=== PATIENT | male | born 1980 | race Caucasian/White ===

== ENCOUNTER 2018-05-05 16:58 | Emergency (ER) | payer MEDICAID, MEDICARE ==
[~2018-05-05] VITALS: Ht 188 cm; Wt 100.0 kg
[~2018-05-05 16:58] MED LIST: ALLO100T PO; ATE25T PO; CLON-527 PO; CYCL-1 PO; DEXL30CA3 PO; DOCUSATE PO; ESCI10TA45 PO; FOL0.4T CORPAK; GABA-338 PO; NEPHC PO; SEVE800T8 PO
[2018-05-05 17:49] LABS: BASOPHILS % (AUTO) 0.2 % (0-1); EOSINOPHILS # (AUTO) 0.1 X10'3 (0-0.9); EOSINOPHILS % (AUTO) 1.3 % (0-6); HEMATOCRIT 38.4 % (42.0-52.0); HEMOGLOBIN 12.9 g/dl (14.0-17.9); LYMPHOCYTES # (AUTO) 1.1 X10'3 (1.1-4.8); LYMPHOCYTES % (AUTO) 16.2 % (21-51); MEAN CORPUSCULAR HEMOGLOBIN 29.7 PG (27.0-31.0); MEAN CORPUSCULAR HGB CONC 33.6 % (33.0-36.5); MEAN CORPUSCULAR VOLUME 88.5 FL (78-98); MEAN PLATELET VOLUME 7.6 FL (7.4-10.4); MONOCYTES # (AUTO) 0.6 X10'3 (0-0.9); MONOCYTES % (AUTO) 8.3 % (2-12); NEUTROPHILS # (AUTO) 5.1 X10'3 (1.8-7.7); PLATELET COUNT 184 X10'3 (140-440); RED BLOOD COUNT 4.34 X10'6 (4.70-6.10); RED CELL DISTRIBUTION WIDTH 14.6 % (11.5-14.5); WHITE BLOOD COUNT 6.9 X10'3 (4.5-11.0)
[2018-05-05 18:00] LABS: PARTIAL THROMBOPLASTIN TIME 26 SECONDS (22-32)
[2018-05-05 18:19] LABS: ALANINE AMINOTRANSFERASE 26 U/L (12-78); ALBUMIN 3.6 G/DL (3.4-5.0); ALBUMIN/GLOBULIN RATIO 1.1 (1.1-1.5); ALKALINE PHOSPHATASE 62 IU/L (46-116); ANION GAP 8 (8-16); ASPARTATE AMINO TRANSFERASE 8 U/L (10-37); BILIRUBIN,TOTAL 0.2 MG/DL (0.1-1.0); BLOOD UREA NITROGEN 21 MG/DL (7-18); CALCIUM 9.5 MG/DL (8.5-10.1); CHLORIDE 109 MMOL/L (99-107); CREATININE 1.75 MG/DL (0.60-1.10); GLUCOSE 134 MG/DL (70-104); POTASSIUM 4.5 MMOL/L (3.5-5.1); SODIUM 141 MMOL/L (135-145); TOTAL CARBON DIOXIDE 23.6 MMOL/L (24-32); eGFR 45 ML/MIN
[2018-05-05 19:48] LABS: CLARITY,URINE CLEAR (Clear); COLOR,URINE YELLOW (Yellow); GLUCOSE, URINE NEGATIVE (Neg); KETONES,URINE TRACE mg/dl (Neg); LEUKOCYTE ESTERASE ,URINE TRACE (Neg); NITRITES, URINE NEGATIVE (Neg); OCCULT BLOOD,URINE TRACE-INTACT (Neg); PH,URINE 5.5 (4.8-8.0); PROTEIN,URINE NEGATIVE (Neg); UROBILINOGEN,URINE 0.2 E.U/dL (0.2-1.0)
[2018-05-05 19:50] LABS: UA COLLECTION TYPE CLN CATCH MIDSTREAM
[2018-05-05 20:01] LABS: BACTERIA,URINE FEW /HPF (Neg); SQUAMOUS EPITHELIAL CELL,UR NONE SEEN /LPF (FEW)
[2018-05-05] MEDS ORDERED: normal saline 1000ML IV soln IVB ONE (20:15)
[2018-05-05] MEDS ORDERED: CefTRIAXone/D5W-Rocephin 1gm 50 ML IV ONE (20:15)
[2018-05-05] MEDS ORDERED: CEPH500C5 PO (20:19)
[2018-05-05 22:14] VITALS: BP 137/91
[2018-05-06] MEDS ORDERED: ONDA4TAB9 SL (13:55)
[2018-05-06] MEDS ORDERED: CIPR-259 PO (13:55)
== END 2018-05-05 22:33 | disposition home or self-care (01) ==
LOC: ER 17:01
DX: N39.0 Urinary tract infection, site not specified (principal); R11.2 Nausea with vomiting, unspecified; R19.7 Diarrhea, unspecified; I12.9 Hypertensive chronic kidney disease with stage 1 through stage 4 chronic kidney disease, or unspecified chronic kidney disease; N18.9 Chronic kidney disease, unspecified; Z94.0 Kidney transplant status; Z79.899 Other long term (current) drug therapy; Z88.5 Allergy status to narcotic agent
CPT/HCPCS: 36415; 71045; 80053; 81001; 84484; 85025; 85610; 85730; 87088; 93005; 96365; 99285; J0696; J7030

== ENCOUNTER 2018-05-06 11:54 | Emergency (ER) | payer MEDICAID ==
[~2018-05-06] VITALS: Ht 188 cm; Wt 100.0 kg
[~2018-05-06 11:54] MED LIST changes: +CEPH500C5 PO
[2018-05-06 12:39] LABS: BASOPHILS % (AUTO) 0.3 % (0-1); EOSINOPHILS # (AUTO) 0.1 X10'3 (0-0.9); EOSINOPHILS % (AUTO) 1.5 % (0-6); HEMOGLOBIN 13.7 g/dl (14.0-17.9); LYMPHOCYTES # (AUTO) 1.2 X10'3 (1.1-4.8); LYMPHOCYTES % (AUTO) 19.8 % (21-51); MEAN CORPUSCULAR HEMOGLOBIN 29.9 PG (27.0-31.0); MEAN CORPUSCULAR HGB CONC 34.3 % (33.0-36.5); MEAN CORPUSCULAR VOLUME 87.2 FL (78-98); MONOCYTES # (AUTO) 0.5 X10'3 (0-0.9); MONOCYTES % (AUTO) 8.7 % (2-12); NEUTROPHILS # (AUTO) 4.3 X10'3 (1.8-7.7); NEUTROPHILS % (AUTO) 69.7 % (42-75); PLATELET COUNT 155 X10'3 (140-440); RED BLOOD COUNT 4.58 X10'6 (4.70-6.10); RED CELL DISTRIBUTION WIDTH 14.1 % (11.5-14.5); WHITE BLOOD COUNT 6.2 X10'3 (4.5-11.0)
[2018-05-06 12:56] LABS: ALANINE AMINOTRANSFERASE 22 U/L (12-78); ALBUMIN 3.7 G/DL (3.4-5.0); ALBUMIN/GLOBULIN RATIO 1.1 (1.1-1.5); ALKALINE PHOSPHATASE 59 IU/L (46-116); ANION GAP 9 (8-16); ASPARTATE AMINO TRANSFERASE 12 U/L (10-37); BILIRUBIN,TOTAL 0.3 MG/DL (0.1-1.0); BLOOD UREA NITROGEN 17 MG/DL (7-18); BUN/CREATININE RATIO 12.2 (5.4-32.0); CALCIUM 9.6 MG/DL (8.5-10.1); CHLORIDE 106 MMOL/L (99-107); CREATININE 1.39 MG/DL (0.60-1.10); GLUCOSE 95 MG/DL (70-104); LIPASE 79 U/L (73-393); SODIUM 142 MMOL/L (135-145); TOTAL CARBON DIOXIDE 26.9 MMOL/L (24-32); TOTAL PROTEIN 7.1 G/DL (6.4-8.2); eGFR 58 ML/MIN
[2018-05-06] MEDS ORDERED: ciprofloxacin 250mg tablet PO ONE (13:10)
[2018-05-06 13:20] LABS: CLARITY,URINE CLEAR (Clear); COLOR,URINE STRAW (Yellow); GLUCOSE, URINE NEGATIVE (Neg); KETONES,URINE NEGATIVE (Neg); LEUKOCYTE ESTERASE ,URINE NEGATIVE (Neg); NITRITES, URINE NEGATIVE (Neg); OCCULT BLOOD,URINE NEGATIVE (Neg); PROTEIN,URINE NEGATIVE (Neg); UROBILINOGEN,URINE 0.2 E.U/dL (0.2-1.0)
[2018-05-06] MEDS ORDERED: HYDROcodone/acetaminophen 10/325mg tab PO ONE (13:20)
[2018-05-06] MEDS ORDERED: ondansetron 4mg rapidly disintigrating tab PO ONE (13:20)
[2018-05-06 13:30] LABS: UA COLLECTION TYPE URINAL
[2018-05-06] MEDS ORDERED: ONDA4TAB9 SL (13:55)
[2018-05-06] MEDS ORDERED: CIPR-259 PO (13:55)
[2018-05-06 14:22] VITALS: BP 140/80
== END 2018-05-06 14:27 | disposition home or self-care (01) ==
LOC: ER 11:55
DX: E86.0 Dehydration (principal); N41.9 Inflammatory disease of prostate, unspecified; N18.9 Chronic kidney disease, unspecified; I12.9 Hypertensive chronic kidney disease with stage 1 through stage 4 chronic kidney disease, or unspecified chronic kidney disease; Z94.0 Kidney transplant status; Z90.49 Acquired absence of other specified parts of digestive tract; Z88.5 Allergy status to narcotic agent; Z88.1 Allergy status to other antibiotic agents; Z79.2 Long term (current) use of antibiotics; Z79.899 Other long term (current) drug therapy
CPT/HCPCS: 36415; 74176; 76700; 80053; 81003; 83690; 85025; 99285

== ENCOUNTER 2018-10-11 12:00 | Emergency (ER) | payer MEDICAID ==
[~2018-10-11] VITALS: Ht 188 cm; Wt 101.2 kg
[2018-10-11 12:23] VITALS: BP 123/79
[2018-10-11] MEDS ORDERED: COLC0.6T69 PO (14:18)
== END 2018-10-11 14:23 | disposition home or self-care (01) ==
LOC: ER 12:01
DX: M25.572 Pain in left ankle and joints of left foot (principal); I12.9 Hypertensive chronic kidney disease with stage 1 through stage 4 chronic kidney disease, or unspecified chronic kidney disease; N18.9 Chronic kidney disease, unspecified; Z94.0 Kidney transplant status; Z90.49 Acquired absence of other specified parts of digestive tract; Z88.5 Allergy status to narcotic agent; Z88.1 Allergy status to other antibiotic agents; Z88.8 Allergy status to other drugs, medicaments and biological substances; Z79.899 Other long term (current) drug therapy
CPT/HCPCS: 99283

== ENCOUNTER 2019-06-06 20:27 | Emergency (ER) | payer MEDICAID ==
[~2019-06-06] VITALS: Ht 188 cm; Wt 106.4 kg
[~2019-06-06 20:27] MED LIST changes: -CEPH500C5 PO; +COLC0.6T69 PO; -FOL0.4T CORPAK; +FOLI0.4T14 CORPAK
[2019-06-06] MEDS ORDERED: ondansetron/PF 4mg/2ml inj IV ONE (20:50)
[2019-06-06] MEDS ORDERED: normal saline 1000ML IV soln IVB ONE (20:50)
[2019-06-06 21:12] LABS: BASOPHILS % (AUTO) 0.4 % (0-1); EOSINOPHILS % (AUTO) 0.4 % (0-6); HEMATOCRIT 48.2 % (42.0-52.0); HEMOGLOBIN 16.4 g/dl (14.0-17.9); LYMPHOCYTES # (AUTO) 0.9 X10'3 (1.1-4.8); LYMPHOCYTES % (AUTO) 12.1 % (21-51); MEAN CORPUSCULAR HEMOGLOBIN 31.6 PG (27.0-31.0); MEAN CORPUSCULAR HGB CONC 33.9 g/dL (33.0-36.5); MEAN CORPUSCULAR VOLUME 93.1 FL (78-98); MEAN PLATELET VOLUME 7.4 FL (7.4-10.4); MONOCYTES # (AUTO) 0.7 X10'3 (0-0.9); MONOCYTES % (AUTO) 9.6 % (2-12); NEUTROPHILS # (AUTO) 5.5 X10'3 (1.8-7.7); NEUTROPHILS % (AUTO) 77.5 % (42-75); PLATELET COUNT 155 X10'3 (140-440); RED BLOOD COUNT 5.18 X10'6 (4.70-6.10); RED CELL DISTRIBUTION WIDTH 14.9 % (11.5-14.5); WHITE BLOOD COUNT 7.1 X10'3 (4.5-11.0)
[2019-06-06 21:26] LABS: ALANINE AMINOTRANSFERASE 42 U/L (12-78); ALBUMIN 4.5 G/DL (3.4-5.0); ALBUMIN/GLOBULIN RATIO 1.2 (1.1-1.5); ALKALINE PHOSPHATASE 56 IU/L (46-116); ANION GAP 14 (8-16); ASPARTATE AMINO TRANSFERASE 27 U/L (10-37); BILIRUBIN,TOTAL 0.7 MG/DL (0.1-1.0); BLOOD UREA NITROGEN 14 MG/DL (7-18); BUN/CREATININE RATIO 9.5 (5.4-32.0); CALCIUM 10.6 MG/DL (8.5-10.1); CHLORIDE 104 MMOL/L (99-107); CREATININE 1.47 MG/DL (0.60-1.10); GLUCOSE 116 MG/DL (70-104); LIPASE 126 U/L (73-393); SODIUM 139 MMOL/L (135-145); TOTAL CARBON DIOXIDE 20.9 MMOL/L (24-32); TOTAL PROTEIN 8.3 G/DL (6.4-8.2); eGFR 54 ML/MIN
[2019-06-06] MEDS ORDERED: clonazePAM 1mg tablet PO ONE (22:30)
[2019-06-06] MEDS ORDERED: cloNIDine 0.1 mg tablet PO ONE (22:30)
[2019-06-06 22:39] VITALS: BP 157/94
== END 2019-06-06 22:40 ==
LOC: ER 20:27
DX: I10 Essential (primary) hypertension (principal); F13.239 Sedative, hypnotic or anxiolytic dependence with withdrawal, unspecified; R19.7 Diarrhea, unspecified; R11.10 Vomiting, unspecified; F10.99 Alcohol use, unspecified with unspecified alcohol-induced disorder; Z94.0 Kidney transplant status; Z90.49 Acquired absence of other specified parts of digestive tract; Z88.5 Allergy status to narcotic agent; Z88.1 Allergy status to other antibiotic agents; Z88.8 Allergy status to other drugs, medicaments and biological substances; Z79.899 Other long term (current) drug therapy; Y90.9 Presence of alcohol in blood, level not specified
CPT/HCPCS: 36415; 74176; 80053; 83690; 84145; 85025; 93005; 96361; 96374; 99284; J2405; J7030

== ENCOUNTER 2019-06-08 13:52 | Emergency (ER) | payer MEDICAID, OTHER ==
[~2019-06-08] VITALS: Ht 188 cm; Wt 220.0 kg
[2019-06-08] MEDS ORDERED: normal saline 1000ML IV soln IVB ONE (14:05)
[2019-06-08] MEDS ORDERED: normal saline 1000ml 1,000 ML IV ONE (14:20)
[2019-06-08] MEDS ORDERED: ondansetron/PF 4mg/2ml inj IV ONE (14:20)
--- NOTE | 2019-06-08 14:28 | NUR ---
First attempt to obtain urine sample per MD order, patient unable to provide sample at this time.
[2019-06-08 14:33] LABS: BASOPHILS % (AUTO) 0.5 % (0-1); EOSINOPHILS % (AUTO) 0.5 % (0-6); HEMATOCRIT 42.3 % (42.0-52.0); HEMOGLOBIN 14.3 g/dl (14.0-17.9); LYMPHOCYTES # (AUTO) 0.5 X10'3 (1.1-4.8); LYMPHOCYTES % (AUTO) 9.4 % (21-51); MEAN CORPUSCULAR HEMOGLOBIN 31.7 PG (27.0-31.0); MEAN CORPUSCULAR HGB CONC 33.8 g/dL (33.0-36.5); MEAN CORPUSCULAR VOLUME 93.9 FL (78-98); MEAN PLATELET VOLUME 7.3 FL (7.4-10.4); MONOCYTES # (AUTO) 0.6 X10'3 (0-0.9); MONOCYTES % (AUTO) 11.1 % (2-12); NEUTROPHILS # (AUTO) 4.5 X10'3 (1.8-7.7); NEUTROPHILS % (AUTO) 78.5 % (42-75); PLATELET COUNT 131 X10'3 (140-440); RED CELL DISTRIBUTION WIDTH 14.7 % (11.5-14.5); WHITE BLOOD COUNT 5.7 X10'3 (4.5-11.0)
[2019-06-08 14:48] LABS: ALANINE AMINOTRANSFERASE 45 U/L (12-78); ALBUMIN 3.6 G/DL (3.4-5.0); ALBUMIN/GLOBULIN RATIO 1.2 (1.1-1.5); ALKALINE PHOSPHATASE 43 IU/L (46-116); ANION GAP 11 (8-16); ASPARTATE AMINO TRANSFERASE 27 U/L (10-37); BILIRUBIN,TOTAL 0.7 MG/DL (0.1-1.0); BLOOD UREA NITROGEN 11 MG/DL (7-18); BUN/CREATININE RATIO 8.3 (5.4-32.0); CALCIUM 8.7 MG/DL (8.5-10.1); CHLORIDE 107 MMOL/L (99-107); CREATININE 1.32 MG/DL (0.60-1.10); GLUCOSE 176 MG/DL (70-104); LIPASE 133 U/L (73-393); POTASSIUM 3.8 MMOL/L (3.5-5.1); SODIUM 139 MMOL/L (135-145); TOTAL CARBON DIOXIDE 20.9 MMOL/L (24-32); TOTAL PROTEIN 6.6 G/DL (6.4-8.2); eGFR 61 ML/MIN
[2019-06-08 14:58] LABS: CLARITY,URINE CLEAR (Clear); COLOR,URINE YELLOW (Yellow); GLUCOSE, URINE NEGATIVE (Neg); KETONES,URINE TRACE mg/dl (Neg); LEUKOCYTE ESTERASE ,URINE NEGATIVE (Neg); NITRITES, URINE NEGATIVE (Neg); OCCULT BLOOD,URINE SMALL (Neg); PROTEIN,URINE NEGATIVE (Neg); UROBILINOGEN,URINE 0.2 E.U/dL (0.2-1.0)
[2019-06-08 15:13] LABS: UA COLLECTION TYPE VOIDED
[2019-06-08 15:29] VITALS: BP 156/93
[2019-06-08 15:40] LABS: BACTERIA,URINE NONE SEEN /HPF (Neg); RBC,URINE 0-2 /HPF (0-2); SQUAMOUS EPITHELIAL CELL,UR NONE SEEN /LPF (FEW); WBC,URINE 0-4 /HPF (0-4)
== END 2019-06-08 15:47 ==
LOC: ER 13:53
DX: E86.0 Dehydration (principal); R42 Dizziness and giddiness; I12.9 Hypertensive chronic kidney disease with stage 1 through stage 4 chronic kidney disease, or unspecified chronic kidney disease; N18.9 Chronic kidney disease, unspecified; Z94.0 Kidney transplant status; Z90.49 Acquired absence of other specified parts of digestive tract; Z88.5 Allergy status to narcotic agent; Z79.899 Other long term (current) drug therapy
CPT/HCPCS: 36415; 80053; 81001; 83690; 85025; 93005; 96361; 96374; 99284; J2405; J7030

== ENCOUNTER 2022-02-13 21:27 | Emergency (ER) | payer MEDICAID, OTHER ==
[~2022-02-13] VITALS: Ht 188 cm; Wt 97.7 kg
[~2022-02-13 21:27] MED LIST changes: -COLC0.6T69 PO; +COLC0.6T72 PO
[2022-02-13 21:36] VITALS: BP 139/90
[2022-02-14] MEDS ORDERED: LORA-269 PO (01:03)
[2022-02-14] MEDS ORDERED: diphenhydrAMINE 25mg capsule PO ONE (01:05)
[2022-02-14] MEDS ORDERED: LORazepam 1 MG tablet PO ONE (01:05)
== END 2022-02-14 03:27 | disposition home or self-care (01) ==
LOC: ER 21:30
DX: F41.0 Panic disorder [episodic paroxysmal anxiety] (principal); I12.9 Hypertensive chronic kidney disease with stage 1 through stage 4 chronic kidney disease, or unspecified chronic kidney disease; E10.22 Type 1 diabetes mellitus with diabetic chronic kidney disease; N18.9 Chronic kidney disease, unspecified; Z90.49 Acquired absence of other specified parts of digestive tract; Z72.89 Other problems related to lifestyle; Z90.5 Acquired absence of kidney; Z88.8 Allergy status to other drugs, medicaments and biological substances; Z88.5 Allergy status to narcotic agent; Z88.1 Allergy status to other antibiotic agents; Z79.899 Other long term (current) drug therapy
CPT/HCPCS: 99283; Q0163

== ENCOUNTER 2025-09-20 16:19 | Outpatient (CLI) | payer BC ==
[~2025-09-20 16:19] MED LIST changes: -COLC0.6T72 PO; +COLC0.6T78 PO; -FOLI0.4T14 CORPAK; +FOLI0.4T3 CORPAK; +LORA-269 PO
--- NOTE | 2025-09-20 19:39 | RADIOLOGY REPORT ---
LUMBAR SPINE 6 VIEWS REASON FOR EXAM: LEFT LUMBAR RADICULOPATHY COMPARISON: None TECHNIQUE: AP, lateral and bilateral oblique views of the lumbar spine as well as flexion and extension lateral views of the lumbar spine are submitted for review. FINDINGS: Five lumbar type vertebra are identified. There is partial lumbarization of S1. The vertebral body heights are maintained and there is no evidence of fracture. There is 2 mm retrolisthesis of L3 on L4. There is 2 mm retrolisthesis of L4 on L5. There is no instability with flexion or extension. There is mild disc height loss at L1-L2, L2-L3, L3-L4, and L4-L5. There is moderate disc height loss at T12-L1 with mild endplate hypertrophy. There is mild narrowing of bilateral facet joints at L4-L5. Surgical clips project over the right upper quadrant and right lower quadrant of the abdomen. No abnormal calcification is identified. IMPRESSION: Mild disc height loss throughout the thoracic spine. Minimal retrolisthesis of L3 on L4 and of L4 on L5. No instability on flexion or extension.
== END 2025-09-20 23:59 | disposition home or self-care (01) ==
LOC: RAD 16:19
PROVIDERS: ATTEND Physician Assistant
DX: M51.16 Intervertebral disc disorders with radiculopathy, lumbar region (principal); G95.9 Disease of spinal cord, unspecified; M53.3 Sacrococcygeal disorders, not elsewhere classified; M51.35 Other intervertebral disc degeneration, thoracolumbar region
CPT/HCPCS: 72114